=== PATIENT | female | born 1935 | race African-American/Black ===

== ENCOUNTER → 2016-06-04 | Outpatient (CLI) | payer BC, MEDICARE ==
[2016-02-05 11:24] VITALS: BP 160/68
[~2016-06-04] MED LIST: ACET325T16 PO; AMLO10TA4 PO; ASPI325T4 PO; CARV25TA PO; CETI-203 PO; CETI10TA16 PO; CLON0.1T12 PO; CLON0.2T PO; COLE1TAB PO; DARB25DI SQ; DEXT1DRO7 OP; DOXA4TAB2 PO; DOXA8TAB2 PO; FOLI1TAB16 PO; HEPA500022 SQ; HYDR-2762 PO; HYDR100T24 PO; HYDR12.58 PO; HYDR25TA9 PO; INSU100I17 SQ; INSU100I27 SQ; INSU100V31 SQ; INSU100V8 SQ; ISOS30TA4 PO; LOSA100T6 PO; LOTE5DRO2 OP; LOTE5DRO2 OU; MULT1TAB90 PO; MYCO360T PO; ONDA4TAB7 PO; OXYC5CAP3 PO; PANT40TA3 PO; PHOS250T PO; PRAV40TA2 PO; PRED20TA PO; PRED5TAB PO; TACR0.5C4 PO; TACR1CAP4 PO; TRAM50TA PO; VALG450T PO; ZOLP5TAB PO
--- NOTE | 2016-06-04 14:39 | CARD ---
APPROVED REPORT EXAM: Two-dimensional and M-mode echocardiogram with Doppler and color Doppler. Other Information Quality : Average Rhythm : NSR INDICATION Cardiac Disease: CAD 2D DIMENSIONS Left Atrium(2D)4.1 (1.6-4.0cm)IVSd1.5 (0.7-1.1cm) Aortic Root(2D)2.7 (2.0-3.7cm)LVDd5.1 (3.9-5.9cm) LVOT Diameter2.2 (1.8-2.4cm)PWd1.5 (0.7-1.1cm) LVDs3.6 (2.5-4.0cm)FS (%) 29.6 % SV71.2 mlLVEF(%)56.3 (>50%) Aortic Valve AoV Peak Carlos.145.6cm/sAoV VTI36.8cm AO Peak GR.8.5mmHgLVOT Peak Carlos.115.8cm/s AO Mean GR.5mmHgAVA (VMAX)3.13cm2 Mitral Valve MV E Fdjwbica14.4cm/sMV E Peak Gr.5mmHg MV DECEL QVMA073xrPP A Eskrpkit08.0cm/s MV E Mean Gr.1mmHgMV ELS25up E/A Ratio0.9MV A Pylnfouz911sw MVA (PHT)2.97cm2 Tricuspid Valve TR P. Qduxbdhd118jl/sRAP VCVKHLOI3qiRg TR Peak Gr.69abBfXVWF29fmNt LEFT VENTRICLE The left ventricle is normal size. There is mild concentric left ventricular hypertrophy. Left ventri rayshawn systolic function is normal. The Ejection Fraction is 55-60%. There is normal LV segmental wall m otion. The left ventricular diastolic function and filling is normal for age. RIGHT VENTRICLE The right ventricle is normal size. The right ventricular systolic function is normal. ATRIA The left atrium is borderline dilated. The right atrium size is normal. The interatrial septum is int act with no evidence for an atrial septal defect or patent foramen ovale as noted on 2-D or Doppler i iris. AORTIC VALVE The aortic valve is normal in structure and function. The aortic valve is trileaflet. Doppler and Col or Flow revealed no significant aortic regurgitation. There is no significant aortic valvular stenosi s. MITRAL VALVE The mitral valve is normal in structure and function. There is no mitral valve stenosis. Doppler and Color Flow revealed trace to mild mitral regurgitation. TRICUSPID VALVE The tricuspid valve is normal in structure and function. Doppler and Color Flow revealed mild tricusp id regurgitation. The PA pressure was estimated at 23 mmHg. There is no tricuspid valve stenosis. PULMONIC VALVE The pulmonic valve is not well visualized. Doppler and Color Flow revealed no pulmonic valvular regur gitation. There is no pulmonic valvular stenosis. GREAT VESSELS The aortic root is normal in size. The IVC is normal in size and collapses >50% with inspiration. PERICARDIAL EFFUSION There is no evidence of significant pericardial effusion. Critical Notification Critical Value: No <Conclusion> Left ventricle systolic function is normal. The Ejection Fraction is 55-60%. There is normal LV segmental wall motion. Trace to mild mitral regurgitation. Mild tricuspid regurgitation. The PA pressure was estimated at 23 mmHg. There is no evidence of significant pericardial effusion.
== END | disposition home or self-care (01) ==
LOC: ECHO 12:49
PROVIDERS: ATTEND Internal Medicine Cardiovascular Disease
DX: I08.1 Rheumatic disorders of both mitral and tricuspid valves (principal)
CPT/HCPCS: 93306

== ENCOUNTER → 2016-06-24 | Outpatient (CLI) | payer BC, MEDICARE ==
[2016-02-05 11:24] VITALS: BP 160/68
[~2016-06-24] MED LIST changes: +REGADENOSON 0.4 MG/5 ML DISP.SYRIN. IV ONE; +TACR0.5C20 PO; -TACR0.5C4 PO
--- NOTE | 2016-06-24 12:31 | RAD ---
APPROVED REPORT Test Type: Pharmacological Stress Nurse/Tech: Asha Cintron R.N. 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 Pt has a hx of COPD with chronic upper respir atory infections. Former smoker. Consent: The procedure was explained to the patient in lay terms. Informed consent was witnessed. Kashif eout was entered into [employer]. History and Stress Test performed by Asha Cintron R.N. Pharm. Details Pharmacologic stress testing was performed using 0.4mg per 5ml of regadenoson given intravenously ove r 7-10 seconds. Stress Symptoms Extremely SOA. Retractions noted with inspiration/expiration. POST EXERCISE Reason for Termination: Infusion complete Max HR: 82 bpm Max Blood Pressure: 157/55mmHg Blood Pressure response to exercise: Normal blood pressure response during stress. Heart Rate response to exercise: Normal Chest Pain: No. Arrhythmia: No. ST Change: No. INTERPRETATION Stress EKG Conclusion: Baseline EKG showed sinus rhythm. No ischemic changes at peak stress. No arr hythmias. Imaging Protocol IMAGE PROTOCOL: Rest Tc-99m/stress Tc-99m 1 day Rest: Stress: Viability: Radiopharm.Tc99m HnobgzadeCy14a Sestamibi Dose12.2mCi 30.1mCi Duration 15min. 10min. Img Date 06/24/2016 06/24/2016 Inj-Img Auhp08sdb. 60min. Rest Admin Site:IV - Left AntecubitalAdministrator:TAVIA Wesley Stress Admin Site: IV - Left AntecubitalAdministrator: TAVIA Wesley STRESS DATA End Diast. Vol.106.0mlAv. Heart Rate69.0bpm End Syst. Vol.32.0mlCO Index BSA0.0L/min Myocardial Jcfk532.0gEject. Xmowvbfu46.0% Stress Rates Pk. Fill Rate2.65EDV/secLVtime Pk. Fill 126.16msec Pk. Empty Rate3.94ESV/secLVtime Pk. Ooibp683.21msec 1/3 Pk. Fill1.65EDV/sec Stress Scores Regional WT0.00Summed WT12.00 Regional WM0.00Summed WM3.00 Study quality was good. Left Ventricular size was Normal at Rest and Stress. Lung uptake was Normal. Left Ventricular ejection fraction is 70%. The rest and stress images show normal perfusion, normal contraction and thickening. LV Perf. Quant 17 Seg. SSS8.00 17 Seg. SRS1.00 17 Seg. SDS7.00 Stress Defect Extent (% LAD)0.00Rest Defect Extent (% LAD)0.00Rev. Defect Extent (% LAD)0.00 Stress Defect Extent (% LCX) 65.00Rest Defect Extent (% LCX)7.50Rev. Defect Extent (% LCX)65.00 Stress Defect Extent (% RCA)0.00Rest Defect Extent (% RCA)0.00Rev. Defect Extent (% RCA)0.00 Stress Defect Extent (% SARIKA)12.40Rest Defect Extent (% SARIKA)1.30Rev. Defect Extent (% SARIKA)12.40 Conclusion 1. Regadenoson cardioisotope stress test did not show any evidence of ischemia or infarct. 2. Normal left ventricular systolic function with ejection fraction calculated at 70%. 3. Low risk for cardiac events.
== END | disposition home or self-care (01) ==
LOC: NM 08:36
PROVIDERS: ATTEND Internal Medicine Cardiovascular Disease
DX: I25.10 Atherosclerotic heart disease of native coronary artery without angina pectoris (principal)
CPT/HCPCS: 78452; 93017; 96374; 96375; 96376; A9500; J2785

== ENCOUNTER → 2017-06-01 | Day surgery (SDC) | payer BC ==
[~2017-06-01] MED LIST changes: -ACET325T16 PO; -AMLO10TA4 PO; -ASPI325T4 PO; -CARV25TA PO; -CETI-203 PO; -CETI10TA16 PO; -CLON0.1T12 PO; -CLON0.2T PO; -COLE1TAB PO; -DARB25DI SQ; -DEXT1DRO7 OP; -DOXA4TAB2 PO; -DOXA8TAB2 PO; -FOLI1TAB16 PO; -HEPA500022 SQ; -HYDR-2762 PO; -HYDR100T24 PO; -HYDR12.58 PO; -HYDR25TA9 PO; -INSU100I17 SQ; -INSU100I27 SQ; -INSU100V31 SQ; -INSU100V8 SQ; -ISOS30TA4 PO; +LIDOCAINE 1% PF 2 ML VIAL. ID; +LIDOCAINE 2% PF Vial for OR 5 ML VIAL.; -LOSA100T6 PO; -LOTE5DRO2 OP; -LOTE5DRO2 OU; +MORPHINE SULFATE 4 MG/ML DISP.SYRIN. IV; -MULT1TAB90 PO; -MYCO360T PO; -ONDA4TAB7 PO; +ONDANSETRON PF 4 MG/2 ML VIAL. IV; -OXYC5CAP3 PO; -PANT40TA3 PO; -PHOS250T PO; -PRAV40TA2 PO; -PRED20TA PO; -PRED5TAB PO; +PROCHLORPERAZINE 10 MG/2 ML VIAL. IV; +PROPOFOL 20 ML IV; -REGADENOSON 0.4 MG/5 ML DISP.SYRIN. IV ONE; -TACR0.5C20 PO; -TACR1CAP4 PO; -TRAM50TA PO; -VALG450T PO; -ZOLP5TAB PO; +fentaNYL PF VIAL 100 MCG/2 ML VIAL IV
[2017-06-01] MEDS: IV RINGERS,LACTATED 1000ML 1,000 ML IV (07:00)
[2017-06-01 10:19] LABS: POC GLUCOSE 174 mg/dL (70-99)
== END ==
LOC: ENDOS 09:31
DX: R19.4 Change in bowel habit (principal); G47.33 Obstructive sleep apnea (adult) (pediatric); E11.618 Type 2 diabetes mellitus with other diabetic arthropathy; E11.22 Type 2 diabetes mellitus with diabetic chronic kidney disease; N18.6 End stage renal disease; K21.9 Gastro-esophageal reflux disease without esophagitis; E78.5 Hyperlipidemia, unspecified; I12.0 Hypertensive chronic kidney disease with stage 5 chronic kidney disease or end stage renal disease; Z89.429 Acquired absence of other toe(s), unspecified side; Z90.49 Acquired absence of other specified parts of digestive tract; Z98.890 Other specified postprocedural states; Z79.4 Long term (current) use of insulin; Z90.710 Acquired absence of both cervix and uterus; I73.9 Peripheral vascular disease, unspecified; Z79.82 Long term (current) use of aspirin; Z79.899 Other long term (current) drug therapy; Z88.1 Allergy status to other antibiotic agents; Z88.8 Allergy status to other drugs, medicaments and biological substances
CPT/HCPCS: 45378; 82962; J2704

== ENCOUNTER 2017-11-05 22:46 | Emergency (ER) | payer BC ==
[~2017-11-05] VITALS: Ht 157.5 cm; Wt 54.4 kg
[~2017-11-05 22:46] MED LIST changes: +ACET325T16 PO; +AMLO10TA4 PO; +ASPI325T8 PO; +CARV25TA PO; +CETI-203 PO; +CETI10TA16 PO; +CETI5TAB2 PO; +CLON0.1T12 PO; +CLON0.2T PO; +COLE1TAB PO; +COLE1TAB2 PO; +DARB25DI SQ; +DEXT1DRO7 OP; +DOXA4TAB2 PO; +DOXA8TAB2 PO; +FOLI1TAB16 PO; +FURO-69 PO; +HEPA500022 SQ; +HYDR-2762 PO; +HYDR100T24 PO; +HYDR12.58 PO; +HYDR25TA9 PO; +INSU100I13 SQ; +INSU100I17 SQ; +INSU100I27 SQ; +INSU100V13 SQ; +INSU100V31 SQ; +INSU100V8 SQ; +IPRA3AMP29 NEB; +ISOS30TA4 PO; +KETO10DR6 EACHEYE; -LIDOCAINE 1% PF 2 ML VIAL. ID; -LIDOCAINE 2% PF Vial for OR 5 ML VIAL.; +LOSA100T7 PO; +LOTE5DRO2 OP; +LOTE5DRO2 OU; -MORPHINE SULFATE 4 MG/ML DISP.SYRIN. IV; +MULT-245 PO; +MULT1TAB90 PO; +MYCO360T PO; +ONDA4TAB10 SL; +ONDA4TAB7 PO; -ONDANSETRON PF 4 MG/2 ML VIAL. IV; +OXYC5CAP PO; +PANT40TA3 PO; +PHOS250T PO; +PRAV40TA2 PO; +PRED20TA PO; +PRED5TAB PO; -PROCHLORPERAZINE 10 MG/2 ML VIAL. IV; -PROPOFOL 20 ML IV; +SODI650T PO; +TACR0.5C20 PO; +TACR1CAP4 PO; +TRAM50TA PO; +VALG450T PO; +ZOLP5TAB PO; -fentaNYL PF VIAL 100 MCG/2 ML VIAL IV
[2017-11-05 23:17] LABS: BASO % 1 % (0-3); EOS % 0 % (0-3); HEMATOCRIT 34.3 % (36.0-47.0); HEMOGLOBIN 11.1 g/dL (12.0-15.5); LYMPH # 0.5 x10^3/uL (1.0-4.8); LYMPH % 8 % (24-48); MEAN CORPUSCULAR HEMOGLOBIN 21 pg (25-35); MEAN CORPUSCULAR HGB CONC 32 g/dL (31-37); MEAN CORPUSCULAR VOLUME 66 fL (79-100); MONO # 0.2 x10^3/uL (0.0-1.1); MONO % 3 % (0-9); NEUT # 5.7 x10^3uL (1.8-7.7); NEUT % 88 % (31-73); PLATELET COUNT 279 x10^3/uL (140-400); RED BLOOD COUNT 5.23 x10^6/uL (3.50-5.40); RED CELL DISTRIBUTION WIDTH 17.1 % (11.5-14.5); WHITE BLOOD COUNT 6.5 x10^3/uL (4.0-11.0)
--- NOTE | 2017-11-05 23:36 | PHYS DOC ---
Past Medical History Past Medical History: Diabetes-Type II, Hypertension, Renal Disease Past Surgical History: Appendectomy, Hysterectomy Additional Past Surgical Histo: KIDNEY TRANSPLANT, R [employer] Alcohol Use: None Drug Use: None Adult General Chief Complaint Chief Complaint: DIZZY/LIGHT HEADED HPI HPI Patient is a 82 year old female who presents with dizziness. Patient states she has been feeling dizzy over the course of today and her symptoms worsened this evening. She describes her dizziness to be a feeling of lightheadedness and that she may lose her balance or fall. She denies vertiginous symptoms. She does state she recently increased her dose of insulin at the recommendation of her primary care physician. She has not had chest pain or palpitations. No diaphoresis. She has been eating and drinking normally. She denies abdominal pain. She has been having normal bowel movements. She denies urinary symptoms. Review of Systems Review of Systems Constitutional: Denies fever or chills Eyes: Denies change in visual acuity HENT: Denies nasal congestion Respiratory: Denies cough or shortness of breath Cardiovascular: No additional information not addressed in HPI GI: Denies abdominal pain : Denies dysuria Musculoskeletal: Denies back pain Integument: Denies rash or skin lesions Neurologic: Denies headache, focal weakness or sensory changes All other systems were reviewed and found to be within normal limits, except as documented in this note. Current Medications Current Medications Current Medications Medications (Trade) Dose Ordered Sig/Taye Start Time Stop Time Status Last Admin Dose Admin Hydralazine HCl (Apresoline) 25 mg 1X ONCE 11/06/17 00:00 11/06/17 00:01 DC 11/06/17 00:06 25 MG Sodium Chloride 500 ml @ 250 mls/hr 1X ONCE 11/06/17 00:00 11/06/17 01:59 DC 11/06/17 00:07 250 MLS/HR Allergies Allergies Allergies Coded Allergies Type Severity Reaction Last Updated Verified Iodinated Contrast- Oral and IV Dye Allergy Intermediate Itching 02/05/16 Yes amoxicillin Allergy Intermediate Swelling 02/05/16 Yes clavulanic acid Allergy Intermediate Swelling 02/05/16 Yes diphenhydramine Allergy Intermediate Hives 02/05/16 Yes erythromycin base Allergy Intermediate Rash 02/05/16 Yes rofecoxib Allergy Intermediate Rash 02/05/16 Yes Physical Exam Physical Exam Constitutional: Well developed, well nourished, no acute distress, non-toxic appearance HENT: Normocephalic, atraumatic, bilateral external ears normal, oropharynx moist Eyes: PERRLA, EOMI, conjunctiva normal Neck: Normal range of motion, no tenderness, supple Cardiovascular:Heart rate regular rhythm, no murmur Lungs & Thorax: Bilateral breath sounds clear to auscultation Abdomen: Bowel sounds normal, soft, no tenderness Skin: Warm, dry, no erythema Extremities: trace edema bilateral LE's Neurologic: Alert and oriented X 3, normal motor function Psychologic: Affect normal Current Patient Data Vital Signs Vital Signs Date Time Temp Pulse Resp B/P (MAP) Pulse Ox O2 Delivery O2 Flow Rate FiO2 11/06/17 00:06 72 197/79 11/05/17 22:46 98.0 20 98 Room Air 98.0 Lab Values Laboratory Tests Test 11/05/17 22:59 11/05/17 23:00 11/05/17 23:25 11/06/17 00:03 Glucose (Fingerstick) 193 mg/dL (70-99) H White Blood Count 6.5 x10^3/uL (4.0-11.0) Red Blood Count 5.23 x10^6/uL (3.50-5.40) Hemoglobin 11.1 g/dL (12.0-15.5) L Hematocrit 34.3 % (36.0-47.0) L Mean Corpuscular Volume 66 fL (79-100) L Mean Corpuscular Hemoglobin 21 pg (25-35) L Mean Corpuscular Hemoglobin Concent 32 g/dL (31-37) Red Cell Distribution Width 17.1 % (11.5-14.5) H Platelet Count 279 x10^3/uL (140-400) Neutrophils (%) (Auto) 88 % (31-73) H Lymphocytes (%) (Auto) 8 % (24-48) L Monocytes (%) (Auto) 3 % (0-9) Eosinophils (%) (Auto) 0 % (0-3) Basophils (%) (Auto) 1 % (0-3) Neutrophils # (Auto) 5.7 x10^3uL (1.8-7.7) Lymphocytes # (Auto) 0.5 x10^3/uL (1.0-4.8) L Monocytes # (Auto) 0.2 x10^3/uL (0.0-1.1) Eosinophils # (Auto) 0.0 x10^3/uL (0.0-0.7) Basophils # (Auto) 0.0 x10^3/uL (0.0-0.2) Segmented Neutrophils % 90 % (35-66) H Lymphocytes % 9 % (24-48) L Monocytes % 1 % (0-10) Platelet Estimate Adequate (ADEQUATE) Hypochromasia Mod Anisocytosis Slight Microcytosis Marked Sodium Level 139 mmol/L (136-145) Potassium Level 4.2 mmol/L (3.5-5.1) Chloride Level 102 mmol/L (98-107) Carbon Dioxide Level 26 mmol/L (21-32) Anion Gap 11 (6-14) Blood Urea Nitrogen 29 mg/dL (7-20) H Creatinine 1.1 mg/dL (0.6-1.0) H Estimated GFR (Cockcroft-Gault) 57.8 Glucose Level 222 mg/dL (70-99) H Calcium Level 9.2 mg/dL (8.5-10.1) Troponin I Quantitative < 0.017 ng/mL (0.000-0.055) OI-Ajj-Z-Type Natriuretic Peptide 782 pg/mL (0-449) H Urine Collection Type Unknown Urine Color Yellow Urine Clarity Cloudy Urine pH 5.5 Urine Specific Cyrus 1.010 Urine Protein 30 mg/dL (NEG-TRACE) Urine Glucose (UA) Negative mg/dL (NEG) Urine Ketones (Stick) Negative mg/dL (NEG) Urine Blood Negative (NEG) Urine Nitrite Negative (NEG) Urine Bilirubin Negative (NEG) Urine Urobilinogen Dipstick 1.0 mg/dL (0.2 mg/dL) Urine Leukocyte Esterase Negative (NEG) Urine RBC 0 /HPF (0-2) Urine WBC 1-4 /HPF (0-4) Urine Squamous Epithelial Cells Mod /LPF Urine Amorphous Sediment Present /HPF Urine Bacteria 0 /HPF (0-FEW) Urine Mucus Slight /LPF Urine Yeast Present /HPF Laboratory Tests 11/05/17 23:00 Laboratory Tests 11/05/17 23:25 EKG EKG NSR. No STEMI Interpretation Time: 23:20 Radiology/Procedures Radiology/Procedures [] Course & Med Decision Making Course & Med Decision Making Pertinent Labs and Imaging studies reviewed. (See chart for details) 23:35: Patient is seen and examined. Her physical exam is normal. She does not have chest pain. She complains of dizziness. We'll check basic labs and urinalysis. We'll give gentle fluid bolus. 02:00: All results are reviewed. The patient's creatinine is at baseline although mildly elevated. Her troponin is not elevated. The rest of her lab panel is unremarkable. The urine is mildly elevated. Suspect the patient to be a little bit dehydrated. She was given 250 bolus in the ER. She felt subjectively improved. She was ambulated about the department and did ambulate at baseline with use of the walker which she normally uses. Her family is accompanying her this evening and states that she appears to be at her baseline. The patient is requesting discharge home. She is discharged from the ER and encouraged to follow-up with her primary care doctor or return to the emergency department for any new or worsening symptoms. Dragon Disclaimer Dragon Disclaimer This electronic medical record was generated, in whole or in part, using a voice recognition dictation system. Departure Departure Referrals: RAKEL FORREST MD (PCP) RASHEL PRATHER DO Nov 05, 2017 23:36
[2017-11-05 23:38] LABS: % LYMPHS 9 % (24-48); % MONOS 1 % (0-10); % SEGS 90 % (35-66)
[2017-11-05 23:39] LABS: PLT ESTIMATE ADEQUATE (ADEQUATE)
[2017-11-05 23:40] LABS: ANISOCYTOSIS SLIGHT; HYPOCHROMIA MOD; MICROCYTOSIS MARKED
[2017-11-05 23:53] LABS: CALCIUM 9.2 mg/dL (8.5-10.1); CREATININE 1.1 mg/dL (0.6-1.0); GFR 57.8; POTASSIUM 4.2 mmol/L (3.5-5.1)
[2017-11-06] MEDS ORDERED: IV NORMAL SALINE 500ML BAG 500 ML IV ONE
[2017-11-06] MEDS ORDERED: hydrALAZINE 25 MG TABLET PO ONE
[2017-11-06 00:20] LABS: BILIRUBIN,URINE NEGATIVE (NEG); CLARITY,URINE CLOUDY; COLOR,URINE YELLOW; NITRITE,URINE NEGATIVE (NEG); PH,URINE 5.5; PROTEIN,URINE 30 mg/dL (NEG-TRACE)
[2017-11-06 00:29] LABS: BACTERIA,URINE 0 /HPF (0-FEW); RBC,URINE 0 /HPF (0-2); SQUAMOUS EPITHELIAL CELL,UR MOD /LPF
[2017-11-06 00:30] LABS: AMORPHOUS SEDIMENT,UR PRESENT /HPF; YEAST,URINE PRESENT /HPF
[2017-11-06 01:07] VITALS: BP 199/81
--- NOTE | 2017-11-06 09:11 | EKG ---
[facility] [address] [place] [address] Test Date: 2017-11-05 Test Time: 23:16:28 Pat Name: JACK HATHAWAY Department: Room: Gender: F Hand Stamper: : 1935 Requested By: RASHEL PRATHER Order Number: [id number] Reading MD: Nghia Jama Measurements Intervals [place] Rate: 68 P: 90 DE: 192 QRS: -36 QRSD: 128 T: 105 QT: 450 QTc: 483 Interpretive Statements SINUS RHYTHM ABNORMAL LEFT AXIS DEVIATION NON SPECIFIC INTRAVENTRICULAR BLOCK ABNORMAL ECG Electronically Signed On 11-08-2017 12:27:56 CDT by Nghia Jama
== END 2017-11-06 02:38 | disposition home or self-care (01) ==
LOC: ER 22:46
DX: R42 Dizziness and giddiness (principal); I12.0 Hypertensive chronic kidney disease with stage 5 chronic kidney disease or end stage renal disease; E11.22 Type 2 diabetes mellitus with diabetic chronic kidney disease; N18.6 End stage renal disease; Z99.2 Dependence on renal dialysis; Z94.0 Kidney transplant status; Z90.49 Acquired absence of other specified parts of digestive tract; Z90.710 Acquired absence of both cervix and uterus; Z88.5 Allergy status to narcotic agent; Z88.8 Allergy status to other drugs, medicaments and biological substances; Z88.1 Allergy status to other antibiotic agents; Z91.041 Radiographic dye allergy status
CPT/HCPCS: 36415; 80048; 81001; 82962; 83880; 84484; 85007; 85025; 93005; 96360; 96361; 99285; J7040

== ENCOUNTER → 2018-02-23 | Outpatient (CLI) | payer BC ==
[~2018-02-23] MED LIST changes: +HYDR-2145 PO; -HYDR-2762 PO; +HYDR-2765 PO; -HYDR25TA9 PO; +LOSA100T14 PO; -LOSA100T7 PO; -PANT40TA3 PO; +PANT40TA77 PO
--- NOTE | 2018-02-23 14:21 | CARD ---
MR#: [id number] Date of Study: 02/23/2018 Ordering Physician: VIDA JAMA, Referring Physician: VIDA JAMA Tech: Adrienne Read NIC APPROVED REPORT EXAM: Two-dimensional and M-mode echocardiogram with Doppler and color Doppler. Other Information Quality : AverageHR: 61bpm Rhythm : NSR INDICATION CAD 2D DIMENSIONS RVDd3.5 (2.9-3.5cm)Left Atrium(2D)4.2 (1.6-4.0cm) IVSd1.3 (0.7-1.1cm)Aortic Root(2D)2.8 (2.0-3.7cm) LVDd4.9 (3.9-5.9cm)LVOT Diameter1.9 (1.8-2.4cm) PWd1.0 (0.7-1.1cm)LVDs2.9 (2.5-4.0cm) FS (%) 40.8 %SV81.2 ml LVEF(%)70.0 (>50%) M-Mode DIMENSIONS Left Atrium(MM)4.94 (2.5-4.0cm)Aortic Root3.28 (2.2-3.7cm) Aortic Valve AoV Peak Carlos.139.6cm/sAoV VTI34.1cm AO Peak GR.7.8mmHgLVOT Peak Carlos.118.3cm/s AO Mean GR.5mmHgAVA (VMAX)2.52cm2 ISRAEL (VTI)2.50cm2 Mitral Valve MV E Oggfoxou72.8cm/sMV DECEL IMQQ234hg MV A Mxzfmyzs735.7cm/sE/A Ratio0.7 MV A Oxsezbjv672wg Pulmonary Valve PV Peak Cmzaceho744.6cm/s LEFT VENTRICLE The left ventricle is normal size. Proximal septal thickening is noted. The left ventricular systolic function is normal. The Ejection Fraction is 65-70%. There is normal LV segmental wall motion. Trans mitral Doppler flow pattern is Grade I-abnormal relaxation pattern. RIGHT VENTRICLE The right ventricle is normal size. There is normal right ventricular wall thickness. The right ventr icular systolic function is normal. ATRIA The left atrium is mildly dilated. The right atrium size is normal. The interatrial septum is intact with no evidence for an atrial septal defect or patent foramen ovale as noted on 2-D or Doppler imagi ng. AORTIC VALVE The aortic valve is mildly calcified. The aortic valve is trileaflet. Doppler and Color Flow revealed no significant aortic regurgitation. There is no significant aortic valvular stenosis. MITRAL VALVE The mitral valve is normal in structure and function. There is no evidence of mitral valve prolapse. There is no mitral valve stenosis. Doppler and Color-flow revealed trace mitral regurgitation. TRICUSPID VALVE The tricuspid valve is normal in structure and function. Doppler and Color Flow revealed trace tricus pid regurgitation. There is no tricuspid valve prolapse or vegetation. There is no tricuspid valve st enosis. PULMONIC VALVE Pulmonic valve not well visualized. GREAT VESSELS The aortic root is normal in size. The ascending aorta is normal in size. The IVC is normal in size a nd collapses >50% with inspiration. PERICARDIAL EFFUSION There is no evidence of significant pericardial effusion. Critical Notification Critical Value: No <Conclusion> The left ventricular systolic function is normal. The Ejection Fraction is 65-70%. There is normal LV segmental wall motion. Transmitral Doppler flow pattern is Grade I-abnormal relaxation pattern. The left atrium is mildly dilated. Trace mitral regurgitation. Trace tricuspid regurgitation. There is no evidence of significant pericardial effusion. Signed by : Vida Jama, Electronically Approved : 02/23/2018 14:19:19
--- NOTE | 2018-02-23 17:41 | RAD ---
MR#: [id number] Date of Study: 02/23/2018 Ordering Physician: VIDA EM, Referring Physician: VIDA EM, Tech: Dae Tamayo MBA, RDMS, RVT, RDCS, RTR APPROVED REPORT Patient Location: OUT-PATIENT Indications PAD VELOCITY AND DOPPLER WAVEFORM ANALYSIS RIGHT cm/secWaveformSeverity LEFT cm/secWaveform Severity dCFA 431.0MonophasicdCFA Occluded Prof Fem Art. 167.0MonophasicProf Fem Art. Fem Art Prox. 338.0MonophasicFem Art Prox. Occluded Fem Art Mid. 273.0MonophasicFem Art Mid. 291.0Monophasic Fem Art Dist. 149.0MonophasicFem Art Dist. 27.0Monophasic Pop Art(Fossa) 155.0MonophasicPop Art(AK) 206.0Monophasic SECRETARY RECEPTIONIST Prox. OccludedPTA Prox. 50.0Monophasic SECRETARY RECEPTIONIST Dist. 21.0MonophasicPTA Dist. 78.0Monophasic ALFREDA Prox. 80.0MonophasicATA Prox. 22.0Monophasic DPA 56MonophasicDPA 32Monophasic Image Findings On the right grayscale images demonstrate moderate diffuse atherosclerotic plaque. The posterior tibi al artery and peroneal artery were not well visualized and are likely occluded. Spectral waveforms and color Doppler involving the common femoral artery the proximal superficial fem oral artery and the mid superficial femoral artery demonstrated elevated velocities with a peak systo lic velocity of 431 cm/s suggestive of greater than 70% stenosis involving the proximal portion of th e SFA and the entire common femoral artery. Below the knee the proximal and mid segment of the transport truck driver ior tibial artery appears to be occluded. The peroneal artery is not visualized. The anterior tibial artery is patent extending to the dorsalis pedis level. On the left the left common femoral artery and profunda femoris as well as the proximal segment of th e SFA appear to be occluded with collateralization of the mid SFA with likely greater than 70% stenos is at the level of the collateral flow. There is diffuse disease in the left lower extremity. The ant erior tibial artery and peroneal vessels were not well visualized and likely have diffuse disease. Th ere is patent 1 vessel runoff in the form of the posterior tibial artery. Critical Notification Critical Value: No <Conclusion> 1. 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 Signed by : Esvin Gordon, Electronically Approved : 02/23/2018 17:39:12
== END | disposition home or self-care (01) ==
LOC: ECHO 12:44
PROVIDERS: ATTEND Internal Medicine Cardiovascular Disease
DX: I25.10 Atherosclerotic heart disease of native coronary artery without angina pectoris (principal); I70.291 Other atherosclerosis of native arteries of extremities, right leg; R00.8 Other abnormalities of heart beat
CPT/HCPCS: 93306; 93925